=== PATIENT | male | born 1965 | race Caucasian/White ===

== ENCOUNTER 2024-03-03 09:15 | Outpatient (CLI) | payer OTHER, SELFPAY ==
--- NOTE | 2024-03-03 10:17 | P.ANES_ITS ---
Anesthesia Charges Start Date/Time Anesthesia Start Date: 03/03/24 Anesthesia Start Time: 09:50 Stop Date/Time Anesthesia Stop Date: 03/03/24 Anesthesia Stop Time: 10:15 Coding CPT Codes CPT Codes: ADAN LWR INTST NDSC NOS - [id number] ([id number]) P2 - PATIENT W/MILD SYST DISEASE, QK - SOCIAL AND POLITICAL STUDIES PROFESSOR 2-4 CNCRNT ANES PROC, QX - PHOTOGRAPH INSPECTOR SVC W/ MD MED DIRECTION
--- NOTE | 2024-03-03 10:17 | W.ANESCHARGE ---
Anesthesia Charges Start Date/Time Anesthesia Start Date: 03/03/24 Anesthesia Start Time: 09:50 Stop Date/Time Anesthesia Stop Date: 03/03/24 Anesthesia Stop Time: 10:15 Coding CPT Codes CPT Codes: ADAN LWR INTST NDSC NOS - [id number] ([id number]) P2 - PATIENT W/MILD SYST DISEASE, QK - COMPLIANCE REVIEW SPECIALIST 2-4 CNCRNT ANES PROC, QX - PRODUCTION PLANNER SVC W/ MD MED DIRECTION
--- NOTE | 2024-03-03 10:36 | P.ANES_ITS ---
Anesthesia Charges Start Date/Time Anesthesia Start Date: 03/03/24 Anesthesia Start Time: 09:50 Stop Date/Time Anesthesia Stop Date: 03/03/24 Anesthesia Stop Time: 10:15 Coding CPT Codes CPT Codes: ADAN LWR INTST NDSC NOS - [id number] ([id number]) P2 - PATIENT W/MILD SYST DISEASE, QK - SHIPPING ROOM SUPERVISOR 2-4 CNCRNT ANES PROC, QX - END USER CONSULTANT SVC W/ MD MED DIRECTION
--- NOTE | 2024-03-03 10:36 | W.ANESCHARGE ---
Anesthesia Charges Start Date/Time Anesthesia Start Date: 03/03/24 Anesthesia Start Time: 09:50 Stop Date/Time Anesthesia Stop Date: 03/03/24 Anesthesia Stop Time: 10:15 Coding CPT Codes CPT Codes: ADAN LWR INTST NDSC NOS - [id number] ([id number]) P2 - PATIENT W/MILD SYST DISEASE, QK - PHOTOGRAMMETRIC TECH 2-4 CNCRNT ANES PROC, QX - SOCIAL MEDIA PROJECT MANAGER SVC W/ MD MED DIRECTION
== END 2024-03-03 09:16 | disposition home or self-care (01) ==
LOC: OP CLINIC 09:17
PROVIDERS: PCP Family Medicine; Visit Provider Internal Medicine Gastroenterology
DX: Z12.11 Encounter for screening for malignant neoplasm of colon (principal); D12.5 Benign neoplasm of sigmoid colon; K57.30 Diverticulosis of large intestine without perforation or abscess without bleeding
CPT/HCPCS: 00811; 45385; 88305; J2704